=== PATIENT | male | born 1960 | race Caucasian/White ===

== ENCOUNTER 2019-05-15 12:18 | Emergency (ER) | payer MEDICARE ==
[~2019-05-15] VITALS: Ht 175.3 cm; Wt 68.3 kg
[2019-05-15 12:21] VITALS: BP 104/58
--- NOTE | 2019-05-15 12:47 | NUR ---
PT AMBULATORY USING WALKER, C/O MGLF TODAY TRIPPED ON SIDEWALK, FOREHEAD ABBRASION. UNK LOC, RAUL JAW PAIN WITH NO OBVIOUS MISALLIGNMENT. NO MIDLINE NECK PAIN. ER PA AT BEDSIDE, PT ASSESSMENT REVIEWED AND ORDERS REC'D. PT HYGEINE IS VERY POOR. STRONG URINE AND FECES ODOR NOTED. PANTS WITH RECENT FECES NOTED. PLAN TO SCAN PT FIRST AND REVIEW RESULTS. IF RESULTS NEGATIVE I WILL HAVE HIM TAKE A SHOWER AND PROVIDE CLEAN CLOTHES. PT VSS, NAD NOTED. CALL LIGHT W/I REACH
[2019-05-15] MEDS ORDERED: NEOSPORIN OINT. PKT 1 PACKET ONE (14:43)
--- NOTE | 2019-05-15 15:34 | NUR ---
LATE ENTRY FOR 1350, PT TO SHOWER ROOM VIA WHEELCHAIR, TRANSFERED TO SHOWER BENCH. RN ASSISSTED PT TO REMOVE HIS CLOTHES, ALL CLOTHES WERE DISCARDED THEY WERE COVERED WITH FECES. PT COMPLETED SHOWER INDEPENDENTLY W/O INCIDENT. RTD TO ROOM VIA WHEELCHAIR AND RN ASSISSTED PT TO GET DRESSED IN CLEAN CLOTHES. PATIENTS SHOES WERE ALSO SOILED WITH FECES AND WERE VERY WET. PROVIDED NEW PAIR OF SOCKS AND PUT A PAIR OF HOSPITAL NON-SLIP SOCKS OVER THE NEW SOCKS. PT'S SHOE PLACED IN BELONGINGS BAG FOR HIM.
== END 2019-05-15 15:13 | disposition home or self-care (01) ==
LOC: ED 15:00
DX: S00.93XA Contusion of unspecified part of head, initial encounter (principal); F17.210 Nicotine dependence, cigarettes, uncomplicated; Z59.0 Homelessness; W01.0XXA Fall on same level from slipping, tripping and stumbling without subsequent striking against object, initial encounter; Y93.89 Activity, other specified; Y92.480 Sidewalk as the place of occurrence of the external cause; Y99.8 Other external cause status
CPT/HCPCS: 70450; 72125; 99284